=== PATIENT | female | born 1955 | race Caucasian/White ===

== ENCOUNTER 2016-06-11 07:50 | Day surgery (SDC) | payer MEDICARE, OTHER ==
[2016-06-08 11:11] LABS: HEMATOCRIT 39.6 % (36.0-48.0); HEMOGLOBIN 13.6 g/dL (12.0-16.0)
[2016-06-08 11:20] LABS: CALCIUM, SERUM 9.7 MG/DL (8.5-10.4); CHLORIDE, SERUM 102 MMOL/L (96-112); CO2 (CARBON DIOXIDE) 29 MMOL/L (24-34); CREATININE 0.83 MG/DL (0.55-1.02); GFR AFRICAN AMERICAN 90 ML/MIN (>=60); GFR NON AFRICAN AMERICAN 78 ML/MIN (>=60); POTASSIUM, SERUM 3.9 MMOL/L (3.5-5.3); SODIUM, SERUM 139 MMOL/L (135-148)
[2016-06-08 11:21] LABS: BUN (BLOOD UREA NITROGEN) 9 MG/DL (6-23); GLUCOSE, SERUM 357 MG/DL (60-99)
[~2016-06-11 07:50] MED LIST: ADVAIR250 INH; APRES25 PO; ASAB PO; AT25 PO; CARDCD360 PO; CAT1 PO; EFFEXOR XR150 MG PO; EFFEXXR75 PO; IBU800 PO; LAMICTAL10 PO; LAMICTAL25 PO; LANTUS SC; LEVOTHYROXIN25 MCG PO; LISINOPRIL40 MG PO; NEUR400 PO; NITROSTAT0.4 MG SL; NORCO1 TAB PO; NOVOLOG SC; OXYCOD PO; PR25R PR; PRILO PO; PRIN20 PO; REG5 PO; SEROQUEL XR200 MG PO; SOMATAB PO; TRILIPIX135 MG PO; X5 PO; ZETIA PO; ZOCOR40 PO
[2016-07-08] MEDS ORDERED: ZOFRAN4 PO (14:02)
[2016-07-08] MEDS ORDERED: PRILO PO (14:03)
[2016-07-08] MEDS ORDERED: GLUCPH PO (14:03)
== END 2016-06-11 11:13 | disposition home or self-care (01) ==
LOC: SDC 07:50
PROVIDERS: Orthopaedic Surgery
DX: G95.9 Disease of spinal cord, unspecified (principal); Z53.9 Procedure and treatment not carried out, unspecified reason; J44.9 Chronic obstructive pulmonary disease, unspecified; I10 Essential (primary) hypertension; I50.9 Heart failure, unspecified; E78.00 Pure hypercholesterolemia, unspecified; I25.2 Old myocardial infarction; E11.9 Type 2 diabetes mellitus without complications
CPT/HCPCS: 80048; 82962; 85014; 85018; 87641; 93005; A9270-GY; J0690; J1644; J2250; J3010; J3370; J3475

== ENCOUNTER 2016-06-22 18:22 | Emergency (ER) | payer MEDICARE, OTHER ==
[2016-06-22 15:39] LABS: BASOPHILS 0.2 %; BASOPHILS ABSOLUTE 0.02 10/3/uL (0.0-0.16); EOSINOPHILS 0.4 %; EOSINOPHILS ABSOLUTE 0.05 10/3/uL (0.0-0.53); ER CBC TAT 0 Hrs 08 Mins; HEMATOCRIT 34.8 % (36.0-48.0); HEMOGLOBIN 11.8 g/dL (12.0-16.0); IMMATURE GRANULOCYTES 0.3 %; IMMATURE GRANULOCYTES ABSOLUTE 0.03 10/3/uL (0.0-0.11); LYMPHOCYTES 7.7 %; LYMPHOCYTES ABSOLUTE 0.88 10/3/uL (0.67-4.30); MANUAL DIFF NO %; MEAN CORPUS HGB CONC 33.9 g/dL (32.0-36.0); MEAN CORPUSCULAR HEMOGLOB 31.6 pg (26.0-34.0); MEAN CORPUSCULAR VOLUME 93.3 fL (80-100); MEAN PLATELET VOLUME 11.1 fL (9.2-13.0); MONOCYTES 5.5 %; MONOCYTES ABSOLUTE 0.63 10/3/uL (0.21-1.20); NEUTROPHILS 85.9 %; NEUTROPHILS ABSOLUTE 9.76 10/3/uL (2.02-8.40); PLATELET COUNT 202 10/3/uL (150-400); RED CELL COUNT 3.73 10/6/uL (4.0-5.6); WHITE BLOOD CELLS 11.4 10/3/uL (4.5-10.5)
[2016-06-22 15:46] LABS: INTERNATIONAL NORMAL RATI 1.1 UNITS (-); PARTIAL THROMBO TIME 26.9 SEC (22.5-37.2); PROTIME (NOT ORD) 13.7 SEC (12.0-14.5)
[2016-06-22 15:54] LABS: CALCIUM, SERUM 8.9 MG/DL (8.5-10.4); CHEST PAIN PROFILE TAT 0 Hrs 23 Mins; CHLORIDE, SERUM 112 MMOL/L (96-112); CO2 (CARBON DIOXIDE) 25 MMOL/L (24-34); CREATININE 1.18 MG/DL (0.55-1.02); GFR AFRICAN AMERICAN 59 ML/MIN (>=60); GFR NON AFRICAN AMERICAN 51 ML/MIN (>=60); POTASSIUM, SERUM 3.6 MMOL/L (3.5-5.3); SODIUM, SERUM 143 MMOL/L (135-148); TROPONIN I <0.02 NG/ML (<0.05)
[2016-06-22 15:55] LABS: BUN (BLOOD UREA NITROGEN) 24 MG/DL (6-23); GLUCOSE, SERUM 176 MG/DL (60-99)
[2016-07-08] MEDS ORDERED: ZOFRAN4 PO (14:02)
[2016-07-08] MEDS ORDERED: GLUCPH PO (14:03)
[2016-07-08] MEDS ORDERED: PRILO PO (14:03)
== END 2016-06-22 18:23 | disposition home or self-care (01) ==
LOC: ER 18:22
PROVIDERS: Emergency Medicine
DX: J45.901 Unspecified asthma with (acute) exacerbation (principal); I10 Essential (primary) hypertension; I25.2 Old myocardial infarction; E11.9 Type 2 diabetes mellitus without complications; F17.200 Nicotine dependence, unspecified, uncomplicated; Z79.4 Long term (current) use of insulin; Z79.82 Long term (current) use of aspirin; Z79.899 Other long term (current) drug therapy
CPT/HCPCS: 71010; 80048; 83735; 84484; 85025; 85610; 85730; 93005; 94640; 96374; 99285; J2930

== ENCOUNTER 2016-07-11 05:34 | Inpatient (IN) | payer MEDICARE, OTHER ==
[2016-07-10 12:10] LABS: HEMOGLOBIN 12.1 g/dL (12.0-16.0)
[2016-07-10 12:31] LABS: CALCIUM, SERUM 8.5 MG/DL (8.5-10.4); CHLORIDE, SERUM 107 MMOL/L (96-112); CREATININE 0.75 MG/DL (0.55-1.02); GFR AFRICAN AMERICAN 102 ML/MIN (>=60); GFR NON AFRICAN AMERICAN 88 ML/MIN (>=60); GLUCOSE, SERUM 162 MG/DL (60-99); SODIUM, SERUM 144 MMOL/L (135-148)
[2016-07-10 12:33] LABS: BUN (BLOOD UREA NITROGEN) 12 MG/DL (6-23); CO2 (CARBON DIOXIDE) 31 MMOL/L (24-34)
--- NOTE | ~2016-07-11 | OP ---
Record Of Operation [facility] [address] [place]. [address] NAME: AZUCENA CAMARA : 59 STATUS : ADM IN PAT#: [id number] AGE: 60 ADM/REG DATE : 07/11/16 MR#: [id number] REPORT SERV DATE: 07/11/16 DICTATED BY: KARL SPAIN DATE: 07/11/16 REPORT STATUS : Draft TRANSCRIBED BY: MODL DATE: 07/11/16 DATE OF PROCEDURE: 07/11/2016 PREOPERATIVE DIAGNOSIS: C3 through C7 disk disease and stenosis. C3-C4 ossification of posterior longitudinal ligament, cervical spondylotic myelopathy, progressive cervical radiculopathy with left upper extremity weakness. POSTOPERATIVE DIAGNOSIS: C3 through C7 disk disease and stenosis. C3-C4 ossification of posterior longitudinal ligament, cervical spondylotic myelopathy, progressive cervical radiculopathy with left upper extremity weakness. PROCEDURE: C3-C7 posterior laminectomy and bilateral foraminotomies with decompression with C3-C7 nerve roots bilaterally, C3-C7 posterolateral fusion bilaterally, C3-C7 posterior segmental spinal instrumentation using Medtronic lateral mass and pedicle screws, local morcellized autograft, allograft bone matrix, neuromonitoring, intraoperative O-arm CT scan with computer navigation. SURGEON: Karl Spain DO. ANESTHESIA: General. ESTIMATED BLOOD LOSS: 100 mL. COMPLICATIONS: None. INDICATIONS: The patient is a 60-year-old with intractable neck and left arm pain, paresthesias, and weakness, failed conservative treatment and had progressive signs of myelopathy. After progressive neurologic decline, she elected to proceed with surgery. PROCEDURE IN DETAIL: I identified the patient in the holding area. Consent was obtained. Went to the operating room. Underwent general anesthesia with endotracheal intubation. Prepped and draped in the usual sterile fashion. Operative safety pause was performed, then we proceeded. A midline longitudinal incision was made at C3-C7, taken down through the fascial layer. Paraspinous muscles subperiosteally elevated to the tips of lateral masses. Self-retaining retractors were placed. O-arm registration frame was placed on the spinous process. O-arm was brought in for intraoperative CT scan. Computer registration materials were verified. Under computer guidance, bilateral pedicle screws were placed at C7 and then lateral mass screws at C3-C6 bilaterally. O-arm was brought back in to verify good placement of instrumentation. A bur was used to create a trough in the lamina of C3 through C7. Final cut through was made with a duran melisa. Underlying ligamentum flavum released with a Kerrison. Lamina removed en bloc for autograft. Foraminotomies were performed C3-C7 bilaterally. Spinal cord in each of the nerve root of C3-7 were free of compression. Rods were contoured to appropriate shape and length, placed over the screws C3-C7. Set screws were placed and final tightened. Locking mechanisms engaged. High-speed decorticating melisa was used to decorticate the remaining bony surfaces C3-C7 bilaterally. Irrigation performed. Hemostasis achieved. Local morcellized autograft and allograft bone matrix Record Of Operation [address] [address] NAME: AZUCENA CAMARA : 59 STATUS : ADM IN PAT#: [id number] AGE: 60 ADM/REG DATE : 07/11/16 MR#: [id number] REPORT SERV DATE: 07/11/16 DICTATED BY: KARL SPAIN DATE: 07/11/16 REPORT STATUS : Draft TRANSCRIBED BY: MODMichelle DATE: 07/11/16 packed over the decorticated surfaces C3-C7 bilaterally. Subfascial drain placed. A gram of vancomycin powder sprinkled over the surgical wound. Layered closure performed. Sterile dressings applied. The patient awoke and extubated and taken to the recovery room in stable condition. OPERATIVE FINDINGS: C3-7 disk disease and stenosis. No sustained neuromonitoring alerts. CANDIDA/MADELYN Karl Spain DO / [id number] CC: Karl Spain DO
--- NOTE | ~2016-07-11 | DS ---
Discharge Summary [facility] [address] [place]. [address] NAME: AZUCENA CAMARA : 59 STATUS : DIS IN PAT#: [id number] AGE: 61 ADM/REG DATE : 07/11/16 MR#: [id number] REPORT SERV DATE: 07/25/16 DICTATED BY: KARL WILSON DATE: 07/24/16 REPORT STATUS : Draft TRANSCRIBED BY: MADELYN DATE: 07/24/16 Data Collection from hospitalization DISCHARGE DIAGNOSES: 1. C3 through C7 disk disease and stenosis. 2. C3-C4 ossification of posterior longitudinal ligament. 3. Cervical spondylotic myelopathy. 4. Progressive cervical radiculopathy with left upper extremity weakness. 5. Hypertension. 6. Diabetes. 7. Anemia. 8. Anxiety. 9. Osteoarthritis. 10.History of heart attack. 11.Depression. 12.History of viral hepatitis. 13.Hypercholesterolemia. 14.Hyperthyroidism. 15.Kidney disease. 16.Migraine headaches. 17.Peripheral neuropathy. 18.Gastric reflux. 19.Asthma. 20.Sleep apnea. 21.Tobacco use. CONSULTATION: Dr. Armand Herndon. PROCEDURES PERFORMED: 1. C3-C7 posterior laminectomy and bilateral foraminotomies with decompression of C3-C7 nerve roots bilaterally; C3-C7 posterolateral fusion bilaterally; C3-C7 posterior segmental spinal instrumentation using Medtronic lateral mass and pedicle screws; local morcellized autograft, allograft bone matrix, neuromonitoring; intraoperative O-arm CT scan with computer navigation, 07/11/2016. 2. Renal ultrasound, 07/13/2016. PATHOLOGY: Vertebral bone and soft tissue, posterior C3-7-no specific microscopic abnormality. Bone marrow-40% cellular-trilineage hematopoiesis present. MEDICATIONS: Norvasc 10 mg daily, Soma 350 mg twice a day, Zetia 10 mg at bedtime, Advair Diskus one puff via inhaler twice a day, Neurontin 400 mg three times a day, Apresoline 100 mg twice a day, HydroDIURIL 100 mg twice a day, Udell 10/325 one tablet every four hours as needed, NovoLog injection insulin as instructed, Lantus 30 units subcutaneously at bedtime, Imdur 120 mg daily, Lamictal 25 mg daily, levothyroxine 25 mcg every morning, Glucophage half tablet twice a day, Nitrostat 0.4 mg sublingually as needed, Prilosec 20 mg every morning, Zofran 4 mg every eight hours as needed, K-Dur 40 mEq daily, Seroquel XR 200 mg at bedtime, Zocor 40 mg at bedtime, and Effexor XR 150 mg every morning. Discharge Summary [facility] [address] [place]. [address] NAME: AZUCENA CAMARA : 59 STATUS : DIS IN PAT#: [id number] AGE: 61 ADM/REG DATE : 07/11/16 MR#: [id number] REPORT SERV DATE: 07/25/16 DICTATED BY: KARL WILSON DATE: 07/24/16 REPORT STATUS : Draft TRANSCRIBED BY: MADELYN DATE: 07/24/16 CONDITION AT DISCHARGE: Stable. DISPOSITION: The patient was discharged home to be followed by home health care on an 1800- calorie diabetic diet with activities as instructed. She would follow up with me as instructed. HOSPITAL COURSE: This is a 61-year-old female with intractable neck and left upper extremity pain. She had numbness, tingling, and weakness for greater than four weeks. She had also had progressive worsening with balance and dropping objects consistent with cervical myelopathy. She had failed previous conservative treatment, including a variety of medications. She had been involved with pain management. She had a previous anterior cervical diskectomy and fusion at C5-6 that appeared to be followed and after worsening neurologic condition and progressive signs of myelopathy and cervical radiculopathy, she elected to proceed with surgical intervention. She was admitted to the hospital at this time for further evaluation and treatment. Upon admission, she was taken to the operating room, where she underwent the above-mentioned procedure. She tolerated this well and there were no complications. Postoperatively, she was seen by Dr. Armand Herndon regarding diabetes and hypertension. The patient had been having a problem with her blood pressure and diabetes. Her blood pressure had been bottoming out to as low at 49/20 and a family member said that she passed out at that time. They had been trimming down her blood pressure medication. Meanwhile, she said that her hemoglobin A1c had been under control until nine months ago when it was 6.5, but it had been erratic recently and hemoglobin A1c four weeks prior to this admission was 11. She said that she was adjusting her medications herself because she went to several classes and that she knows what to do. She was supposed to have surgery a month prior to this admission, but they had to cancel it because of uncontrolled diabetes. She said that she adheres to a diabetic diet, but family members were rolling their eyes and interjected that she eats a lot of apple pies and cookies. She said that she only eats once a day, but it seems like this is not true because family members were laughing in the background. The patient said that her sugar goes to as low as 40 and as high as 300, but most of the time, it is in the 200s. She is on chronic pain management and has failed previous conservative treatments. Her hemoglobin A1c had been elevated since June 2013. She seemed to be noncompliant and it was felt that it would be hard to adjust the medications at the present time. He recommended continuing the medications for now and adjust accordingly on a day-to-day basis. Hemoglobin A1c and TSH were going to be checked. The patient was placed on subcutaneous insulin protocol and oxygen protocol. She was encouraged to stop smoking. She refused a nicotine patch, but we would make that available as she may go into nicotine withdrawal with the amount of smoking that she does. On postop day one, she complained that she woke up short of breath. She has no diagnosis of obstructive sleep apnea according to the patient. O2 saturation was 94% on room air. Aerosol treatments were ordered. Level 2 sliding scale insulin continued as well as Levemir and metformin. She remained on diltiazem, lisinopril, and hydralazine. On the , she had left lumbar spine pain. Her hemoglobin A1c was 7.9%. Lisinopril and metformin were stopped. Seroquel was decreased at bedtime. ABGs were going to be checked. We encouraged her to mobilize with Physical Therapy when she was awake. On 07/14/2016, she was evaluated by Physical and Occupational Therapy. She was still very Discharge Summary [address] [place]. [address] NAME: AZUCENA CAMARA : 59 STATUS : DIS IN PAT#: [id number] AGE: 61 ADM/REG DATE : 07/11/16 MR#: [id number] REPORT SERV DATE: 07/25/16 DICTATED BY: KARL WILSON DATE: 07/24/16 REPORT STATUS : Draft TRANSCRIBED BY: MODL DATE: 07/24/16 sedated and sleepy. Her JEFFRY drain remained in place. Creatinine level was 1.38. She was on BiPAP. Dulera was changed to Brovana and Pulmicort. The next day, she was more alert. She did complain of some neck pain. The Collins catheter was going to be removed. The urinalysis was checked. Imdur/hydralazine was increased. Potassium supplementation was added. Over the next couple of days, she continued to progress. She underwent diabetes education. Discharge planning was performed. Metoprolol was added to her regimen. On 07/17/2016, she was doing well. She was alert and cooperative. She had no focal deficits. Her acute respiratory failure had resolved. Discharge instructions were given. Due to her improved and stable condition, she was discharged home to be followed by home health care with the above-stated instructions. Information collected by: Valencia Meyer I submit the above information as my discharge summary. TG/MADELYN Karl Wilson DO / [id number] CC: DO Ronald Salmeron MD
--- NOTE | ~2016-07-11 | CN ---
Consultation Report [facility] [address] [place]. [address] NAME: AZUCENA CAMARA : 59 STATUS : ADM IN PAT#: [id number] AGE: 60 ADM/REG DATE : 07/11/16 MR#: [id number] REPORT SERV DATE: 07/11/16 DICTATED BY: MAGDI JULIAN DATE: 07/11/16 REPORT STATUS : Draft TRANSCRIBED BY: MODMichelle DATE: 07/11/16 DATE OF CONSULTATION: 07/11/2016 REASON FOR CONSULTATION: Consult coming from Dr. Wilson for diabetes and hypertension. HISTORY OF PRESENT ILLNESS: This is a 60-year-old female who comes in for neck pain. The patient has a history of CAD, diabetes, hypertension and says that her diabetes and high blood pressure was controlled when she was with Dr. Child. Unfortunately, she said that she did not mesh well with Dr. Child and has to travel 60 miles to see him, so she changed doctor to Dr. Henriquez and is seeing one of his nurse practitioner or PA. They have been having a problem with her blood pressure and diabetes. Her blood pressure has been bottoming out to as low as 49/20 and the family member said that she passed out at that time, so they have been trimming down her blood pressure medication. Meanwhile, she said that her hemoglobin A1c was under control until nine months ago where in it was 6.5, but it has been erratic recently and the hemoglobin A1c four weeks ago was 11. She said that she is adjusting her medications herself because she went to several classes that she knows what to do. She was supposed to have surgery a month ago, but they had to cancel it because of uncontrolled diabetes. She said that she adheres to a diabetic diet, but I see family members rolling her eyes and interjected that she eats a lot of apple pies and cookies. She said that she only eats once a day, but it seems like it is not true because I see the family members laughing in the background. The patient says that her sugar goes to as low as 40 and as high as 300, but most of the time it is in the 200s. The patient has a previous neck surgery. However, she is on chronic pain management and failed previous conservative treatments, and she finally underwent C-spine laminectomy and fusion. We are now called to help out with the medical problems. The patient said that she was doing fine before the surgery. She denies any fever, chills, sweats, nausea, vomiting, cough or shortness of breath. No near syncopal or syncopal episode. No urinary or bowel changes. REVIEW OF SYSTEMS: The rest of the 14-point review of system is negative except as above. PAST MEDICAL HISTORY: Includes PTSD, depression, anxiety, hypothyroidism, LEO, hypertension, PAD, diabetes, dyslipidemia, right renal artery stenosis. She had a left nephrectomy, she does not know why, nephrolithiasis, abdominal hysterectomy and right oophorectomy, bilateral tubal ligation, tonsillectomy and adenoidectomy, excision of a right breast mass, temporal artery biopsy, carpal tunnel release. ALLERGIES: SHE IS ALLERGIC TO ERYTHROMYCIN, ASPIRIN. MEDICATIONS: But she is taking the following medications. Aspirin, Soma, Cardizem, Zetia, Advair, Neurontin, Apresoline, [place], ibuprofen, NovoLog, Lantus, Lamictal, levothyroxine, lisinopril, metformin, nitroglycerin, Prilosec, Zofran, Seroquel, Zocor, Effexor. FAMILY HISTORY: Dad had an NV at the age of 55. Consultation Report [address] [address] NAME: AZUCENA CAMARA : 59 STATUS : ADM IN [facility]#: [id number] AGE: 60 ADM/REG DATE : 07/11/16 MR#: [id number] REPORT SERV DATE: 07/11/16 DICTATED BY: MAGDI JULIAN DATE: 07/11/16 REPORT STATUS : Draft TRANSCRIBED BY: MADELYN DATE: 07/11/16 SOCIAL HISTORY: She said that she is a pack a day smoker since the age of 25, but the family member, a child said that she smokes fives of five packs a day. She denies alcohol or recreational drug use. PHYSICAL EXAMINATION: GENERAL: The patient is alert, obese, and oriented x3, not in cardiopulmonary distress, on 2 L of oxygen. VITAL SIGNS: Her current vital signs include a saturation of 90% at 2 L, blood pressure of 114/49, temperature of 97.9, pulse rate of 63, respiration of 12. NECK: She has supple neck, but I cannot really examine that well because she has a soft collar. No pharyngeal erythema. HEENT: [place] conjunctivae. Anicteric sclerae. LUNGS: Clear lungs. No rales. No wheezes. CARDIOVASCULAR: Regular rate and rhythm. No murmurs. ABDOMEN: Positive bowel sounds. Soft, nontender. No masses. EXTREMITIES: Fair pulses. No edema. NEURO: Nonlocalizing. LABORATORY DATA: Reveals a chemistry within normal limits. Glucose of 162. WBC of 11.4, H and H of 12.1 and 37. ASSESSMENT: 1. Status post C-spine laminectomy and fusion. 2. Uncontrolled diabetes. 3. Peripheral artery disease with right renal artery stenosis. 4. Hypertension. 5. Obstructive sleep apnea. 6. History of posttraumatic stress disorder. 7. Tobacco abuse. 8. Hypothyroidism. PLAN: I will defer C-spine laminectomy and fusion to you. The patient has history of uncontrolled diabetes and labile hypertension. I do not have a good feeling that she is telling the right history as it seems like the reaction of the family members is different from what the patient is telling me. Looking back at her hemoglobin A1c, it has been elevated since June of 2013. She seems to be noncompliant and it will be hard for me to adjust the medication as of the present time. I would continue the medications for now and adjust accordingly on a day-to-day basis on what our records would show. I will check the hemoglobin A1c, the TSH. I will put the patient on subcu insulin protocol, on oxygen protocol. I counseled her on stopping smoking. She refused nicotine patch, but I will make that available as she might go into nicotine withdrawal with the amount of smoking that she does. Thank you for this consult and I will follow the patient with you. Consultation Report [place] [id number] [place]. [address] NAME: AZUCENA CAMARA : 59 STATUS : ADM IN [facility]#: [id number] AGE: 60 ADM/REG DATE : 07/11/16 MR#: [id number] REPORT SERV DATE: 07/11/16 DICTATED BY: MAGDI JULIAN DATE: 07/11/16 REPORT STATUS : Draft TRANSCRIBED BY: MADELYN DATE: 07/11/16 EMI/MADELYN Magdi Julian M.D. / [id number] CC: DO Ronald Salmeron MD
--- NOTE | ~2016-07-11 | PREOPHP ---
PreOp History and Physical [address] [address] NAME: AZUCENA CAMARA : 59 STATUS : ADM IN PAT#: [id number] AGE: 60 ADM/REG DATE : 07/11/16 MR#: [id number] REPORT SERV DATE: 07/11/16 DICTATED BY: KARL SPAIN DATE: 07/11/16 REPORT STATUS : Draft TRANSCRIBED BY: MADELYN DATE: 07/11/16 CHIEF COMPLAINT: Neck pain and left upper extremity pain. HISTORY OF PRESENT ILLNESS: The patient is a 60-year-old female with intractable neck and left upper extremity pain. She has numbness and tingling, and weakness for greater than four weeks. She has also had progressive worsening problems with balance and dropping objects consistent with cervical myelopathy. She has failed previous conservative treatment including a variety of medications. She has been involved with Pain Management. She had a previous anterior cervical diskectomy and fusion at C5-C6 that appears solid, and after worsening neurologic condition and progressive signs of myelopathy and cervical radiculopathy she elected to proceed with surgical intervention. REVIEW OF SYSTEMS: She denies chest pain, shortness of breath, and bowel or bladder changes. ALLERGIES: ERYTHROMYCIN, ANTI-INFLAMMATORIES, AND LACTOSE. HOME MEDICATIONS: 1. Alprazolam. 2. Insulin. 3. Clonidine. 4. Diltiazem. 5. Fenofibric acid. 6. Neurontin. 7. Hydralazine. 8. Hydrocodone. 9. Hydroxyzine. 10.Ibuprofen. 11.Lamotrigine. 12.Synthroid. 13.Lisinopril. 14.Metoclopramide. 15.Morphine. 16.NovoLog. 17.Omeprazole. 18.Oxycodone. 19.Quetiapine. 20.Simvastatin. 21.Venlafaxine. 22.Zetia. FAMILY HISTORY: Noncontributory. PAST MEDICAL HISTORY: 1. Anemia. 2. Anxiety. 3. Osteoarthritis. PreOp History and Physical [address] [address] NAME: AZUCENA CAMARA : 59 STATUS : ADM IN PAT#: [id number] AGE: 60 ADM/REG DATE : 07/11/16 MR#: [id number] REPORT SERV DATE: 07/11/16 DICTATED BY: KARL SPAIN DATE: 07/11/16 REPORT STATUS : Draft TRANSCRIBED BY: MADELYN DATE: 07/11/16 4. History of heart attack. 5. Hypertension. 6. Depression. 7. Diabetes. 8. Viral hepatitis. 9. High cholesterol. 10.Hyperthyroidism. 11.Kidney disease. 12.Migraine headaches. 13.Peripheral neuropathy. 14.Gastric reflux. 15.Asthma. 16.Sleep apnea. PHYSICAL EXAMINATION: VITAL SIGNS: Height 4 feet 10 inches, weight 155, BMI 43.4. GENERAL: Healthy appearing, no acute distress. PSYCH: Alert and oriented x3. Normal mood and affect. Gait is somewhat unsteady. VASCULAR: No extremity swelling. SPINE: Decreased cervical motion. HEART: Regular rate and rhythm. LUNGS: Clear to auscultation. ABDOMEN: Soft, nontender, and nondistended with good bowel sounds. BREASTS: Deferred. RECTAL: Deferred. NEUROLOGIC: The patient has an unsteady gait. She has 4/5 motor strength for the left triceps, other muscles are 5/5. Spurling sign is positive bilaterally. Abducted arm sign is positive on the left. Cyndee is positive bilaterally. Decreased sensation to light touch left C6 distribution. IMAGING: I have reviewed the CT scan, she does have a what appears to be solid previous anterior cervical diskectomy and fusion C5-C6. She has stenosis from C4 through C7, degenerative disk disease C3-C5 and C6-C7, ossification of the posterior longitudinal ligament C3-C4. ASSESSMENT: Degenerative changes as detailed above as well as progressive myelopathy and cervical radiculopathy with weakness, failed conservative treatment. PLAN: The patient elects to proceed with surgery. Risks and benefits were discussed. Consent was obtained. She is ready to proceed. CANDIDA/MADELYN Karl Spain DO PreOp History and Physical [address] [address] NAME: AZUCENA CAMARA : 59 STATUS : ADM IN [facility]#: [id number] AGE: 60 ADM/REG DATE : 07/11/16 MR#: [id number] REPORT SERV DATE: 07/11/16 DICTATED BY: KARL SPAIN DATE: 07/11/16 REPORT STATUS : Draft TRANSCRIBED BY: MADELYN DATE: 07/11/16 / [id number] CC: Karl Spain, DO Ronald Henriquez MD
[~2016-07-11 05:34] MED LIST changes: +GLUCPH PO; +ZOFRAN4 PO
[2016-07-12 04:00] LABS: BASOPHILS 0 %; EOSINOPHILS 0 %; IMMATURE GRANULOCYTES 0.4 %; IMMATURE GRANULOCYTES ABSOLUTE 0.05 10/3/uL (0.0-0.11); LYMPHOCYTES 3.8 %; LYMPHOCYTES ABSOLUTE 0.52 10/3/uL (0.67-4.30); MEAN PLATELET VOLUME 9.9 fL (9.2-13.0); MONOCYTES 5.4 %; MONOCYTES ABSOLUTE 0.74 10/3/uL (0.21-1.20); NEUTROPHILS 90.4 %; NEUTROPHILS ABSOLUTE 12.33 10/3/uL (2.02-8.40); PLATELET COUNT 222 10/3/uL (150-400); RBC DISTRIBUTION WIDTH 13.2 % (12.0-16.0); RED CELL COUNT 3.23 10/6/uL (4.0-5.6); WHITE BLOOD CELLS 13.6 10/3/uL (4.5-10.5)
[2016-07-12 04:04] LABS: HEMATOCRIT 31.4 % (36.0-48.0); MEAN CORPUS HGB CONC 31.8 g/dL (32.0-36.0); MEAN CORPUSCULAR VOLUME 97.2 fL (80-100)
[2016-07-12 04:05] LABS: MANUAL DIFF NO %
[2016-07-12 04:20] LABS: A/G RATIO 0.9 (0.7-1.9); ALKALINE PHOSPHATASE 102 U/L (45-117); BUN (BLOOD UREA NITROGEN) 12 MG/DL (6-23); CALCIUM, SERUM 8.4 MG/DL (8.5-10.4); CHLORIDE, SERUM 101 MMOL/L (96-112); CO2 (CARBON DIOXIDE) 27 MMOL/L (24-34); CREATININE 0.93 MG/DL (0.55-1.02); GFR AFRICAN AMERICAN 79 ML/MIN (>=60); GFR NON AFRICAN AMERICAN 68 ML/MIN (>=60); GLOBULIN 3.4 G/DL (2.5-4.1); GLUCOSE, SERUM 215 MG/DL (60-99); SGOT(AST) 24 U/L (5-40); SGPT(ALT) 14 U/L (5-65); SODIUM, SERUM 135 MMOL/L (135-148); TOTAL BILIRUBIN 0.2 MG/DL (0-1.2); TOTAL PROTEIN 6.4 G/DL (6.0-8.5); ULTRASENSITIVE TSH 0.465 MCIU/ML (0.358-3.740)
[2016-07-12 14:46] LABS: ASCORBIC ACID (UR NOT ORDER) NEG (NEG); BILIRUBIN, URINE NEGATIVE (NEG); KETONE, URINE NEGATIVE (NEG); LEUKOCYTE ESTERASE(NOT OR MOD (NEG); WBC (NOT ORDERED) (RFLEX) 18 (0-5)
[2016-07-13 04:14] LABS: BASOPHILS 0.1 %; BASOPHILS ABSOLUTE 0.01 10/3/uL (0.0-0.16); EOSINOPHILS 0.6 %; EOSINOPHILS ABSOLUTE 0.09 10/3/uL (0.0-0.53); HEMATOCRIT 31.3 % (36.0-48.0); HEMOGLOBIN 10.2 g/dL (12.0-16.0); IMMATURE GRANULOCYTES 0.6 %; IMMATURE GRANULOCYTES ABSOLUTE 0.09 10/3/uL (0.0-0.11); LYMPHOCYTES 10.8 %; LYMPHOCYTES ABSOLUTE 1.59 10/3/uL (0.67-4.30); MANUAL DIFF NO %; MEAN CORPUS HGB CONC 32.6 g/dL (32.0-36.0); MEAN CORPUSCULAR HEMOGLOB 31.7 pg (26.0-34.0); MEAN CORPUSCULAR VOLUME 97.2 fL (80-100); MEAN PLATELET VOLUME 10.3 fL (9.2-13.0); MONOCYTES 10.2 %; NEUTROPHILS 77.7 %; PLATELET COUNT 225 10/3/uL (150-400); RBC DISTRIBUTION WIDTH 13.4 % (12.0-16.0); RED CELL COUNT 3.22 10/6/uL (4.0-5.6); WHITE BLOOD CELLS 14.7 10/3/uL (4.5-10.5)
[2016-07-13 04:26] LABS: CHLORIDE, SERUM 94 MMOL/L (96-112); GLUCOSE, SERUM 173 MG/DL (60-99); POTASSIUM, SERUM 4.5 MMOL/L (3.5-5.3); SODIUM, SERUM 133 MMOL/L (135-148)
[2016-07-13 04:30] LABS: BUN (BLOOD UREA NITROGEN) 34 MG/DL (6-23); CALCIUM, SERUM 9.5 MG/DL (8.5-10.4); CO2 (CARBON DIOXIDE) 32 MMOL/L (24-34); CREATININE 1.77 MG/DL (0.55-1.02); GFR AFRICAN AMERICAN 36 ML/MIN (>=60); GFR NON AFRICAN AMERICAN 31 ML/MIN (>=60)
[2016-07-13 12:11] LABS: ASCORBIC ACID (UR NOT ORDER) NEG (NEG); BILIRUBIN, URINE NEGATIVE (NEG); KETONE, URINE NEGATIVE (NEG); LEUKOCYTE ESTERASE(NOT OR LARGE (NEG); WBC (NOT ORDERED) (RFLEX) 25 (0-5)
[2016-07-13 12:14] LABS: BE (BASE EXCESS) -1.6 MEQ/L (0 +/- 2.5); CARBOXYHEMOGLOBIN 1.2 % (0-3); DEVICE 2L NC; HCO3 (ACTUAL BICARBONATE) 26.1 MEQ/L (23-27); HEMOBLOGIN CONTENT 9.8 G/DL (12-16); INSTRUMENT SERIAL # 8083; METHEMOGLOBIN 0.3 % (0-3); O2 CONTENT 13.1 VOL% (18-24); OPERATOR ID 14472; PCO2 (CO2 TENSION) 60 MMHG (35-45); PO2 (O2 TENSION) 95 MMHG (79-93); SAMPLE Arterial; pH 7.26 (7.37-7.43)
[2016-07-14 04:36] LABS: BASOPHILS 0.1 %; BASOPHILS ABSOLUTE 0.01 10/3/uL (0.0-0.16); EOSINOPHILS 2.1 %; EOSINOPHILS ABSOLUTE 0.17 10/3/uL (0.0-0.53); HEMATOCRIT 29.6 % (36.0-48.0); HEMOGLOBIN 9.3 g/dL (12.0-16.0); IMMATURE GRANULOCYTES 0.5 %; IMMATURE GRANULOCYTES ABSOLUTE 0.04 10/3/uL (0.0-0.11); LYMPHOCYTES 12.1 %; LYMPHOCYTES ABSOLUTE 0.97 10/3/uL (0.67-4.30); MANUAL DIFF NO %; MEAN CORPUS HGB CONC 31.4 g/dL (32.0-36.0); MEAN CORPUSCULAR HEMOGLOB 30.8 pg (26.0-34.0); MEAN PLATELET VOLUME 10.2 fL (9.2-13.0); MONOCYTES 10.1 %; MONOCYTES ABSOLUTE 0.81 10/3/uL (0.21-1.20); NEUTROPHILS 75.1 %; NEUTROPHILS ABSOLUTE 6.02 10/3/uL (2.02-8.40); PLATELET COUNT 188 10/3/uL (150-400); RBC DISTRIBUTION WIDTH 13.5 % (12.0-16.0); RED CELL COUNT 3.02 10/6/uL (4.0-5.6)
[2016-07-14 04:49] LABS: ALBUMIN 2.7 G/DL (3.5-5.0); BUN (BLOOD UREA NITROGEN) 37 MG/DL (6-23); CALCIUM, SERUM 9.3 MG/DL (8.5-10.4); CHLORIDE, SERUM 100 MMOL/L (96-112); CO2 (CARBON DIOXIDE) 32 MMOL/L (24-34); CREATININE 1.38 MG/DL (0.55-1.02); GFR AFRICAN AMERICAN 49 ML/MIN (>=60); GFR NON AFRICAN AMERICAN 42 ML/MIN (>=60); PHOSPHORUS, SERUM 4.3 MG/DL (2.5-4.5); POTASSIUM, SERUM 5.2 MMOL/L (3.5-5.3); SODIUM, SERUM 137 MMOL/L (135-148)
[2016-07-14 04:50] LABS: GLUCOSE, SERUM 105 MG/DL (60-99)
[2016-07-15 03:48] LABS: HEMATOCRIT 31.2 % (36.0-48.0); HEMOGLOBIN 9.9 g/dL (12.0-16.0); MEAN CORPUS HGB CONC 31.7 g/dL (32.0-36.0); MEAN CORPUSCULAR HEMOGLOB 30.9 pg (26.0-34.0); MEAN CORPUSCULAR VOLUME 97.5 fL (80-100); MEAN PLATELET VOLUME 10.1 fL (9.2-13.0); PLATELET COUNT 228 10/3/uL (150-400); RBC DISTRIBUTION WIDTH 12.8 % (12.0-16.0); WHITE BLOOD CELLS 9.6 10/3/uL (4.5-10.5)
[2016-07-15 03:50] LABS: MANUAL DIFF YES %
[2016-07-15 04:00] LABS: CHLORIDE, SERUM 103 MMOL/L (96-112); CO2 (CARBON DIOXIDE) 32 MMOL/L (24-34); SODIUM, SERUM 139 MMOL/L (135-148)
[2016-07-15 04:01] LABS: BUN (BLOOD UREA NITROGEN) 20 MG/DL (6-23); CALCIUM, SERUM 10.6 MG/DL (8.5-10.4); CREATININE 0.57 MG/DL (0.55-1.02); GFR AFRICAN AMERICAN 118 ML/MIN (>=60); GFR NON AFRICAN AMERICAN 102 ML/MIN (>=60); GLUCOSE, SERUM 83 MG/DL (60-99); POTASSIUM, SERUM 5.2 MMOL/L (3.5-5.3)
[2016-07-15 04:28] LABS: EOSINOPHILS 2 %; EOSINOPHILS ABSOLUTE (CALC) 0.19 10/3/uL (0.0-0.53); LYMPHOCYTES 6 %; LYMPHOCYTES ABSOLUTE (CALC) 0.58 10/3/uL (0.67-4.30); MONOCYTES 6 %; MONOCYTES ABSOLUTE (CALC) 0.58 10/3/uL (0.21-1.20); NEUTROPHILS ABSOLUTE (CALC) 8.26 10/3/uL (2.02-8.40); PLATELET ESTIMATE ADQ (ADEQUATE); SEGMENTED NEUTROPHIL (0) 86 %; TOTAL NUCLEATED CELLS 100
[2016-07-15 04:29] LABS: TOXIC GRANULATION SLT; VACUOLATED NEUTROPHILES FEW
[2016-07-16 05:12] LABS: CALCIUM, SERUM 10.4 MG/DL (8.5-10.4); CHLORIDE, SERUM 97 MMOL/L (96-112); CREATININE 0.42 MG/DL (0.55-1.02); GFR AFRICAN AMERICAN 131 ML/MIN (>=60); GFR NON AFRICAN AMERICAN 113 ML/MIN (>=60); SODIUM, SERUM 142 MMOL/L (135-148)
[2016-07-16 05:13] LABS: BUN (BLOOD UREA NITROGEN) 16 MG/DL (6-23); CO2 (CARBON DIOXIDE) 39 MMOL/L (24-34); GLUCOSE, SERUM 60 MG/DL (60-99); POTASSIUM, SERUM 3.3 MMOL/L (3.5-5.3)
[2016-07-16 05:14] LABS: BASOPHILS 0.2 %; BASOPHILS ABSOLUTE 0.02 10/3/uL (0.0-0.16); EOSINOPHILS 0.7 %; EOSINOPHILS ABSOLUTE 0.08 10/3/uL (0.0-0.53); HEMATOCRIT 30.5 % (36.0-48.0); HEMOGLOBIN 10.1 g/dL (12.0-16.0); IMMATURE GRANULOCYTES 0.8 %; LYMPHOCYTES 5.4 %; LYMPHOCYTES ABSOLUTE 0.66 10/3/uL (0.67-4.30); MEAN CORPUS HGB CONC 33.1 g/dL (32.0-36.0); MEAN CORPUSCULAR HEMOGLOB 31.1 pg (26.0-34.0); MEAN PLATELET VOLUME 9.8 fL (9.2-13.0); MONOCYTES 8.4 %; MONOCYTES ABSOLUTE 1.03 10/3/uL (0.21-1.20); NEUTROPHILS 84.5 %; RBC DISTRIBUTION WIDTH 12.6 % (12.0-16.0); RED CELL COUNT 3.25 10/6/uL (4.0-5.6); WHITE BLOOD CELLS 12.3 10/3/uL (4.5-10.5)
[2016-07-16 05:20] LABS: MANUAL DIFF NO %; MEAN CORPUSCULAR VOLUME 93.8 fL (80-100); PLATELET COUNT 299 10/3/uL (150-400)
[2016-07-16 13:14] LABS: ASCORBIC ACID (UR NOT ORDER) NEG (NEG); BILIRUBIN, URINE NEGATIVE (NEG); KETONE, URINE 20 MG/DL (NEG); LEUKOCYTE ESTERASE(NOT OR NEG (NEG); WBC (NOT ORDERED) (RFLEX) 1 (0-5)
[2016-07-17 06:14] LABS: BASOPHILS 0.3 %; BASOPHILS ABSOLUTE 0.02 10/3/uL (0.0-0.16); EOSINOPHILS 2.4 %; EOSINOPHILS ABSOLUTE 0.18 10/3/uL (0.0-0.53); HEMATOCRIT 31.3 % (36.0-48.0); HEMOGLOBIN 10.5 g/dL (12.0-16.0); IMMATURE GRANULOCYTES 0.7 %; IMMATURE GRANULOCYTES ABSOLUTE 0.05 10/3/uL (0.0-0.11); LYMPHOCYTES 15.7 %; LYMPHOCYTES ABSOLUTE 1.17 10/3/uL (0.67-4.30); MEAN CORPUS HGB CONC 33.5 g/dL (32.0-36.0); MEAN CORPUSCULAR HEMOGLOB 31.3 pg (26.0-34.0); MEAN CORPUSCULAR VOLUME 93.4 fL (80-100); MEAN PLATELET VOLUME 9.6 fL (9.2-13.0); MONOCYTES 12.2 %; MONOCYTES ABSOLUTE 0.91 10/3/uL (0.21-1.20); NEUTROPHILS 68.7 %; NEUTROPHILS ABSOLUTE 5.11 10/3/uL (2.02-8.40); PLATELET COUNT 309 10/3/uL (150-400); RBC DISTRIBUTION WIDTH 12.6 % (12.0-16.0); RED CELL COUNT 3.35 10/6/uL (4.0-5.6); WHITE BLOOD CELLS 7.4 10/3/uL (4.5-10.5)
[2016-07-17 06:15] LABS: MANUAL DIFF NO %
[2016-07-17 06:24] LABS: BUN (BLOOD UREA NITROGEN) 17 MG/DL (6-23); CALCIUM, SERUM 9.6 MG/DL (8.5-10.4); CHLORIDE, SERUM 97 MMOL/L (96-112); CO2 (CARBON DIOXIDE) 39 MMOL/L (24-34); CREATININE 0.62 MG/DL (0.55-1.02); GFR AFRICAN AMERICAN 114 ML/MIN (>=60); GFR NON AFRICAN AMERICAN 99 ML/MIN (>=60); POTASSIUM, SERUM 3.5 MMOL/L (3.5-5.3); SODIUM, SERUM 138 MMOL/L (135-148)
[2016-07-17 06:25] LABS: GLUCOSE, SERUM 76 MG/DL (60-99)
[2016-07-17] MEDS ORDERED: NORV10 PO (16:44)
[2016-07-17] MEDS ORDERED: HCTZ25B PO (16:45)
[2016-07-17] MEDS ORDERED: IMDUR120 PO (16:52)
[2016-07-17] MEDS ORDERED: KDUR20 PO (17:04)
[2016-07-17] MEDS ORDERED: DOCUSOFT S100 MG PO (17:32)
== END 2016-07-17 20:52 | disposition home health service (06) | DRG 472 ==
LOC: SDC/OF 05:34 → 3SO 11:00 → 6NO 07-13 17:03 → IMCU 07-13 17:30 → 2SO 07-15 18:00
PROVIDERS: Hospitalist; Internal Medicine; Orthopaedic Surgery; Student in an Organized Health Care Education/Training Program
DX: M50.11 Cervical disc disorder with radiculopathy, high cervical region (principal); M50.01 Cervical disc disorder with myelopathy, high cervical region; E11.65 Type 2 diabetes mellitus with hyperglycemia; I70.1 Atherosclerosis of renal artery; I10 Essential (primary) hypertension; G47.33 Obstructive sleep apnea (adult) (pediatric); E03.9 Hypothyroidism, unspecified; F17.210 Nicotine dependence, cigarettes, uncomplicated; I25.10 Atherosclerotic heart disease of native coronary artery without angina pectoris; F43.10 Post-traumatic stress disorder, unspecified; F32.9 Major depressive disorder, single episode, unspecified; F41.9 Anxiety disorder, unspecified; E78.5 Hyperlipidemia, unspecified; E88.1 Lipodystrophy, not elsewhere classified; Z98.890 Other specified postprocedural states; Z88.6 Allergy status to analgesic agent; Z82.49 Family history of ischemic heart disease and other diseases of the circulatory system
CPT/HCPCS: 36415; 36600; 71010; 76775; 80048; 80053; 80069; 81001; 82805; 82962; 83036; 84443; 85014; 85018; 85025; 86900; 86901; 87086; 87641; 88304; 88311; 93005; 94640; 94660; 97110-GP; 97116-GP; 97161-GP; 97164-GP; 97166-GO; 97530-GP; 97535-GO; A9270-GY; C1713; G8978-CK-GP; G8979-CJ-GP; G8979-CK-GP; G8987-CK-GO; G8988-CJ-GO; J0330; J0360; J0690; J1644; J2250; J2270; J2370; J2405; J3010; J3370